=== PATIENT | male | born 1975 | race African-American/Black ===

== ENCOUNTER 2020-08-07 08:18 | Emergency (ER) | payer OTHER ==
[2020-08-07 08:39] VITALS: BP 144/83; PULSE 90; TEMP 98.2; BMI 34.7
[2020-08-07] MEDS ORDERED: BACITRACIN 15 GM TUBE TOPICAL OINTMENT ONE (08:53)
[2020-08-07] MEDS ORDERED: IBUPROFEN 400 MG TABLET (FP) PO ONE (09:04)
== END 2020-08-07 09:35 | disposition home or self-care (01) ==
LOC: JERFT 08:18 → JER 08:18 → JERFT 09:35
DX: L03.116 Cellulitis of left lower limb (principal); S89.90XA Unspecified injury of unspecified lower leg, initial encounter
CPT/HCPCS: 73562-TC-LT-FY; 99284-25

== ENCOUNTER 2020-08-12 09:05 | Emergency (ER) | payer OTHER ==
[2020-08-12 09:15] VITALS: BP 148/90; PULSE 99; TEMP 98.3; BMI 29.5
== END 2020-08-12 10:43 | disposition home or self-care (01) ==
LOC: JER 09:05
DX: M25.562 Pain in left knee (principal)
CPT/HCPCS: 73562-TC-LT-FY; 99283-25